=== PATIENT | female | born 1990 | race Caucasian/White ===

== ENCOUNTER 2017-02-25 23:31 | Emergency (ER) | payer OTHER ==
[~2017-02-25] VITALS: Ht 160 cm; Wt 62.0 kg
[~2017-02-25 23:31] MED LIST: FERR27TA PR; FOLI0.4T2 PO; PREN1TAB49 PO
[2017-02-25 23:37] VITALS: Ht 160 cm; Wt 62.0 kg
[2017-02-25] MEDS ORDERED: LIDOCAINE/MYLANTA 40 ML BTL PO STA (23:48)
[2017-02-25] MEDS ORDERED: SOD CHLORIDE 0.9% 500 ML IV STA (23:48)
[2017-02-26 00:25] LABS: ADD SCAN DIFF NO
[2017-02-26 00:30] LABS: BASOPHILS % 0.2 % (0.0-2.0); MEAN CORPUSCULAR VOLUME 90.3 fl (82.0-101.0); RED CELL DISTRIBUTION WIDTH 13.5 % (11.5-14.5)
[2017-02-26 00:35] LABS: EOSINOPHILS # 0.1 10^3/ul (0.0-0.5); HEMATOCRIT 32.6 % (37.0-47.0); HEMOGLOBIN 10.8 g/dl (12.0-16.0); LYMPHOCYTES # 1.8 10^3/ul (0.8-2.9); LYMPHOCYTES % 21.5 % (15.0-51.0); MEAN CORPUSCULAR HEMOGLOBIN 29.9 pg (29.0-33.0); MEAN CORPUSCULAR HGB CONC 33.1 g/dl (32.0-37.0); MEAN PLATELET VOLUME 11.9 fl (7.4-10.4); MONOCYTE # 0.6 10^3/ul (0.3-0.9); MONOCYTES % 6.8 % (0.0-11.0); NEUTROPHIL # 5.8 10^3/ul (1.6-7.5); NEUTROPHILS % 69.9 % (39.0-77.0); PLATELET COUNT 182 10^3/UL (140-415); RED BLOOD COUNT 3.61 10^6/ul (4.20-5.40); WHITE BLOOD COUNT 8.3 10^3/ul (4.8-10.8)
[2017-02-26 00:42] LABS: ADD UMIC YES; UR ASCORBIC ACID NEGATIVE (NEGATIVE); UR BACTERIA MODERATE /HPF (NONE SEEN); UR BILIRUBIN (Dip) NEGATIVE (NEGATIVE); UR BLOOD (Dip) NEGATIVE (NEGATIVE); UR CLARITY CLOUDY (CLEAR); UR COLOR YELLOW (YELLOW); UR GLUCOSE (Dip) NEGATIVE (NEGATIVE); UR KETONES (Dip) NEGATIVE (NEGATIVE); UR LEUKOCYTE ESTERASE (Dip) 3+ Leu/ul (NEGATIVE); UR NITRITE (Dip) NEGATIVE (NEGATIVE); UR RBC 2 /HPF (0-5); UR SPECIFIC GRAVITY (Dip) 1.016 (1.003-1.030); UR SQUAMOUS EPITHELIAL CELL MANY /HPF (FEW); UR TOTAL PROTEIN (Dip) NEGATIVE (NEGATIVE); UR UROBILINOGEN (Dip) NEGATIVE (NEGATIVE)
[2017-02-26 00:44] LABS: INR 0.93; PROTIME 12.5 Sec (12.2-14.2)
[2017-02-26 00:45] LABS: PARTIAL THROMBOPLASTIN TIME 27.3 Sec (25.0-35.0)
[2017-02-26 00:49] LABS: ANION GAP 8 (8-16); BLOOD UREA NITROGEN 10 mg/dl (7-20); CALCIUM 9.7 mg/dl (8.4-10.2); CARBON DIOXIDE 24 mmol/L (21-31); CHLORIDE 101 mmol/L (97-110); CREATININE 0.64 mg/dl (0.44-1.00); GLUCOSE 101 mg/dl (70-220); POTASSIUM 3.5 mmol/L (3.5-5.1); SODIUM 129 mmol/L (135-144)
[2017-02-26 01:04] LABS: TROPONIN-I < 0.012 ng/ml (0.00-0.12)
[2017-02-26] MEDS ORDERED: CEFEPIME 1GM/50 ML (PMX) 50 ML IVPB ONE (02:30)
[2017-02-26] MEDS ORDERED: CEPH500C PO (02:32)
[2017-02-26] MEDS ORDERED: RANI150T9 PO (02:32)
--- NOTE | 2017-02-26 02:41 | ERD ---
ER Documentation Chief Complaint Date/Time DATE: 02/26/17 TIME: 02:34 Chief Complaint c/o SB and CP with excertion. (+) 38 wks . HPI 26-year-old female presents with chest pain since earlier this morning coming by some shortness of breath. There is certain trunk movements which make the chest pain worse. She denies any fever or chills. She is currently 38 weeks and has had no complications so far. ROS All systems reviewed and are negative except as per history of present illness. Medications Home Meds Active Scripts Cephalexin* (Cephalexin*) 500 Mg Capsule, 500 MG PO Q8, #9 CAP Prov:SHARON GUARDADO DO 02/26/17 Ranitidine Hcl* (Zantac*) 150 Mg Tablet, 150 MG PO BID, #60 TAB Prov:SHARON GUARDADO DO 02/26/17 Reported Medications Vits W-Ca,Fe,Fa(<1MG) () 1 Tab Tablet, 1 PO 06/08/11 Discontinued Reported Medications Folic Acid* (Folic Acid*) 0.4 Mg Tablet, 0.4 MG PO 06/08/11 Ferrous Sulfate (Iron) 1 Tab Tablet, 1 AK 06/08/11 Allergies Allergies: Coded Allergies: No Known Drug Allergies (Unverified Allergy, Unknown, 02/26/17) PMhx/Soc Medical and Surgical Hx: pt denies Medical Hx, pt denies Surgical Hx Hx Alcohol Use: No Hx Substance Use: No Hx Tobacco Use: No Smoking Status: Never smoker Physical Exam Vitals Vital Signs Date Time Temp Pulse Resp B/P Pulse Ox O2 Delivery O2 Flow Rate FiO2 02/25/17 23:37 98.7 74 18 103/62 98 Physical Exam Const: [] No distress Head: Atraumatic Eyes: Normal Conjunctiva ENT: Normal External Ears, Nose and Mouth. Neck: Full range of motion..~ No meningismus. Resp: Clear to auscultation bilaterally Cardio: Regular rate and rhythm, no murmurs Abd: Gravid, non tender, no deformities Skin: No petechiae or rashes Back: No midline or flank tenderness Ext: No cyanosis, or edema Neur: Awake and alert and oriented 3, no focal deficits Psych: Normal Mood and Affect Result Diagram: 02/25/17 2351 02/25/17 2351 Results 24 hrs Laboratory Tests Test 02/25/17 23:51 02/26/17 00:19 White Blood Count 8.310^3/ul Red Blood Count 3.6110^6/ul Hemoglobin 10.8g/dl Hematocrit 32.6% Mean Corpuscular Volume 90.3fl Mean Corpuscular Hemoglobin 29.9pg Mean Corpuscular Hemoglobin Concent 33.1g/dl Red Cell Distribution Width 13.5% Platelet Count 56178^3/UL Mean Platelet Volume 11.9fl Neutrophils % 69.9% Lymphocytes % 21.5% Monocytes % 6.8% Eosinophils % 1.0% Basophils % 0.2% Nucleated Red Blood Cells % 0.0/100WBC Neutrophils # 5.810^3/ul Lymphocytes # 1.810^3/ul Monocytes # 0.610^3/ul Eosinophils # 0.110^3/ul Basophils # 0.010^3/ul Nucleated Red Blood Cells # 0.010^3/ul Prothrombin Time 12.5Sec Prothrombin Time Ratio 1.0 INR International Normalized Ratio 0.93 Activated Partial Thromboplast Time 27.3Sec Sodium Level 129mmol/L Potassium Level 3.5mmol/L Chloride Level 101mmol/L Carbon Dioxide Level 24mmol/L Anion Gap 8 Blood Urea Nitrogen 10mg/dl Creatinine 0.64mg/dl Glucose Level 101mg/dl Calcium Level 9.7mg/dl Troponin I < 0.012ng/ml B-Type Natriuretic Peptide 77PG/ML Urine Color YELLOW Urine Clarity CLOUDY Urine pH 7.0 Urine Specific [place] 1.016 Urine Ketones NEGATIVEmg/dL Urine Nitrite NEGATIVEmg/dL Urine Bilirubin NEGATIVEmg/dL Urine Urobilinogen NEGATIVEmg/dL Urine Leukocyte Esterase 3+Lori/ul Urine Microscopic RBC 2/HPF Urine Microscopic WBC 54/HPF Urine Squamous Epithelial Cells MANY/HPF Urine Bacteria MODERATE/HPF Urine Hemoglobin NEGATIVEmg/dL Urine Glucose NEGATIVEmg/dL Urine Total Protein NEGATIVEmg/dl Current Medications Medications (Trade) Dose Ordered Sig/Murali Route PRN Reason Start Time Stop Time Status Last Admin Dose Admin Sodium Chloride (NS) 500 ml @ 500 mls/hr Q1H STAT IV 02/25/17 23:48 02/26/17 00:47 DC 02/26/17 00:22 Miscellaneous Medication 40 ml 40 ml ONCE STAT PO 02/25/17 23:48 02/25/17 23:51 DC 02/26/17 00:23 Cefepime HCl (Maxipime 1gm/50 ml (Pmx)) 50 ml @ 100 mls/hr ONCE ONCE IVPB 02/26/17 02:30 02/26/17 02:59 02/26/17 02:28 Procedures/MDM Chest pain with shortness of breath and female that resolved almost simultaneously with GI cocktail. She has had very stable vital signs and his symptoms are resolved I have very low suspicion for pulmonary embolism or acute coronary syndrome. Does have a urinary tract infection. Also has some anemia and hyponatremia. She currently feels very well. Going to discharge her with Keflex for her urinary tract infection. She was given IV normal saline per I did give 1 g of Rocephin in the emergency room in order to prevent any complications of her secondary to a UTI. She is stable currently I am discharging her to go up to labor and delivery for the specialist to check out the health of her baby. EKG interpretation: Normal sinus rhythm rate of 76, normal axis, no ST or T- wave changes concerning for acute ischemia, normal intervals. Normal EKG with normal respiratory variation. gambling monitor interpretation: Normal sinus rhythm without arrhythmia Departure Diagnosis: Primary Impression: UTI (urinary tract infection) Additional Impressions: GERD (gastroesophageal reflux disease) Chest pain Hyponatremia Condition: Stable Patient Instructions: Understanding Urinary Tract Infections (UTIs), Chest Pain , Uncertain Cause, Gerd (Adult) Referrals: COMMUNITY CLINICS YOU HAVE RECEIVED A MEDICAL SCREENING EXAM AND THE RESULTS INDICATE THAT YOU DO NOT HAVE A CONDITION THAT REQUIRES URGENT TREATMENT IN THE EMERGENCY DEPARTMENT. FURTHER EVALUATION AND TREATMENT OF YOUR CONDITION CAN WAIT UNTIL YOU ARE SEEN IN YOUR DOCTORS OFFICE WITHIN THE NEXT 1-2 DAYS. IT IS YOUR RESPONSIBILITY TO MAKE AN APPOINTMENT FOR FOLOW-UP CARE. IF YOU HAVE A PRIMARY DOCTOR --you should call your primary doctor and schedule an appointment IF YOU DO NOT HAVE A PRIMARY DOCTOR YOU CAN CALL OUR PHYSICIAN REFERRAL HOTLINE AT IF YOU CAN NOT AFFORD TO SEE A PHYSICIAN YOU CAN CHOSE FROM THE FOLLOWING PENDING SALE TO [facility] [address] [facility]. [facility] [address] [facility]. [facility] [address] [facility]. [facility] [address] [facility]. [facility] [address] [facility]. [facility]. [address] Additional Instructions: Llame al doctor MAANA y andrew marla ALEJANDRINA PARA DENTRO DE 1-2 WOODSON.Dgale a la secretaria que nosotros le instruimos hacer esta alejandrina.Avise o llame si woodard condicin se empeora antes de la alejandrina. Regresa aqui si peor o no mejor. SHARON GUARDADO DO Feb 26, 2017 02:41
[2017-02-26 02:53] VITALS: BP 98/63; PULSE 71; RESP 15
== END 2017-02-26 03:00 | disposition home or self-care (01) ==
LOC: E/R 23:31
DX: O23.43 Unspecified infection of urinary tract in pregnancy, third trimester (principal); K21.9 Gastro-esophageal reflux disease without esophagitis; R07.9 Chest pain, unspecified; E87.1 Hypo-osmolality and hyponatremia; R06.02 Shortness of breath; O99.613 Diseases of the digestive system complicating pregnancy, third trimester; O99.283 Endocrine, nutritional and metabolic diseases complicating pregnancy, third trimester; Z3A.38 38 weeks gestation of pregnancy
CPT/HCPCS: 36415; 80048; 81001; 83880; 84484; 85025; 85610; 85730; 87086; 93005; 96374; J0692; J7040; Z7502; Z7610

== ENCOUNTER 2017-02-26 03:10 | Outpatient (CLI) | payer OTHER ==
[~2017-02-26] VITALS: Ht 154.9 cm; Wt 58.8 kg
[~2017-02-26 03:10] MED LIST changes: +CEPH500C PO; +RANI150T9 PO
[2017-02-26 03:31] VITALS: BP 101/59; PULSE 59; RESP 18
--- NOTE | 2017-02-26 05:07 | RADRPT ---
PROCEDURE: OB ultrasound for biophysical profile CLINICAL INDICATION: Contractions TECHNIQUE: Multiple sonographic images of the pelvis were obtained. Transabdominal views of the g ravid uterus are available for review. The images were reviewed on a PACS workstation. COMPARISON: None FINDINGS: breathing movement = 2/2 tone = 2/2 motion = 2/2 MAGGI = 2/2 MAGGI = 11.5 cm Single live intrauterine with cardiac activity of 131 bpm. position is cephal ic. The placenta is posterior. IMPRESSION: 1. Single live intrauterine gestation. 2. Biophysical profile = 8. 3. MAGGI = 11.5 cm. RPTAT: HH .Linda Long MD, MD Date Time Electronically viewed and signed by .Linda Long MD, on 02/26/2017 05:06 .G/
--- NOTE | 2017-02-26 05:28 | TRIAGE ---
OB Triage Datetime Report Generated by CPN: 02/26/2017 05:28 Datetime: 02/26/2017 05:16 Stage of : OB Triage Monitor Mode: External Quality: Mild Pattern: Normal: <= 5 Contractions in 10 Minutes Resting Tone [place]: Relaxed Heart Rate FHR Baseline Rate: 115 Monitor Mode: External US FHR Baseline Changes: No Baseline Change Variability: Moderate 6-25 bpm Accelerations: 15X15 Decelerations: None Category: Category I Datetime: 02/26/2017 04:27 Amniotic Fluid Odor: None Pool: Negative Nitrazine: Negative Datetime: 02/26/2017 04:20 Stage of : OB Triage Monitor Mode: External Quality: Mild Pattern: Normal: <= 5 Contractions in 10 Minutes Resting Tone [place]: Relaxed Heart Rate FHR Baseline Rate: 115 Monitor Mode: External US Variability: Moderate 6-25 bpm Accelerations: 15X15 Decelerations: None Category: Category I Datetime: 02/26/2017 04:06 Heart Rate FHR Baseline Rate: 120 Monitor Mode: External US Datetime: 02/26/2017 03:57 Stage of : OB Triage Datetime: 02/26/2017 03:55 Stage of : OB Triage Labor Evaluation Frequency: 2-5 Monitor Mode: External Duration (sec)2399: 40-60 Quality: Mild Pattern: Normal: <= 5 Contractions in 10 Minutes Resting Tone [place]: Relaxed Heart Rate FHR Baseline Rate: 120 Monitor Mode: External US FHR Baseline Changes: No Baseline Change Variability: Moderate 6-25 bpm Accelerations: 15X15 Decelerations: None Category: Category I Vaginal Exam Dilatation (cms): 0.0 Effacement (%): 20 Station: -3 Exam By: Munira Smyth Membrane Status: Intact Vaginal Bleeding: None Cervix, Consistency: Moderate Cervix, Position: Posterior Presentation 'A': Unable to Assess Datetime: 02/26/2017 03:39 Membrane Status: Intact Datetime: 02/26/2017 03:21 Time of Arrival: 02/26/2017 02:55 EGA: 37.4 Arrived By: Wheelchair Arrived From: Emergency Dept Chief Complaint: sent from ER for NST after being cleared for SOB and chest pain Movement: Present Contractions: Occasional Rupture of Membranes: Denies Vaginal Bleeding: None Vaginal Discharge: Denies Recent Sexual Intercouse: Denies Abdominal Trauma: Not Applicable Patient Complaints: Other Time Provider Notified: 02/26/2017 03:57 Provider Notified: Dr Muñoz Initial Plan: EFM Datetime: 02/26/2017 03:14 Stage of : OB Triage Maternal Assessment Level of Consciousness: Fully Conscious Headache: Denies Blurred Vision: No Respiratory Effort: Unlabored Nausea/Vomiting: Denies RUQ Epigastric Pain: Denies Facial Edema: None Labor Evaluation Frequency: placed Monitor Mode: External Resting Tone [place]: Relaxed Heart Rate FHR Baseline Rate: 145 Monitor Mode: External US Pain Assessment Pain Scale: 0 Pain Presence: None/Denies Pain Type: N/A
--- NOTE | 2017-02-26 07:17 | PN ---
Triage Information Date/Time February 26, 2017 Weeks of Gestation 37 weeks and 4 days : 3 Para: 2 Diabetes: none Hypertention: none Additional information 26-year-old with IUP at 37 weeks and 4 days presented, with complaint of irregular uterine contractions as well as leaking of fluid for the last month on and off. She also was complaining of shortness of breath and chest pain and had been currently evaluated in the ER. Reports that her chest pain resolved. At this point denies any shortness of breath or chest pain. Denies any decreased movement or vaginal bleeding. Objective Vital Signs Date Time Temp Pulse Resp B/P Pulse Ox O2 Delivery O2 Flow Rate FiO2 02/26/17 03:31 97.8 59 18 101/59 Room Air Heart Rate: 130's Contractions: >10 Minutes Apart Exam General appearance: Alert and oriented 4 patient does not appear to be in any acute distress. Abdomen: Soft, gravid, fundal height consistent with gestational age No rebound tenderness no guarding or rigidity Sterile speculum examination: Negative pooling negative R OM, Adequate MAGGI and ultrasound Cervix closed and long Results/Medications Results 24 hrs Laboratory Tests Test 02/26/17 04:25 Membranes Rupture NEGATIVE Imaging Results PROCEDURE: OB ultrasound for biophysical profile CLINICAL INDICATION: Contractions TECHNIQUE: Multiple sonographic images of the pelvis were obtained. Transabdominal views of the gravid uterus are available for review. The images were reviewed on a PACS workstation. COMPARISON: None FINDINGS: breathing movement = 2/2 tone = 2/2 motion = 2/2 MAGGI = 2/2 MAGGI = 11.5 cm Single live intrauterine with cardiac activity of 131 bpm. position is cephalic. The placenta is posterior. IMPRESSION: 1. Single live intrauterine gestation. 2. Biophysical profile = 8/8. 3. MAGGI = 11.5 cm. RPTAT: HH Assessment/Plan IUP at 37 weeks and 4 days No evidence of labor No evidence of PPROM testing reassuring DC home Strict labor precaution and kick count and follow-up with her OB office in 1-2 days discussed with patient RED LICONA MD Feb 26, 2017 07:17
== END 2017-02-26 05:23 | disposition home or self-care (01) ==
LOC: OBT 03:10 → L-D 03:10 → OBT 05:23
PROVIDERS: ATTEND Obstetrics & Gynecology
DX: O62.9 Abnormality of forces of labor, unspecified (principal); Z3A.37 37 weeks gestation of pregnancy
CPT/HCPCS: 76818; 84112; Z7500; G0463

== ENCOUNTER 2017-03-14 21:55 | Inpatient (IN) | payer OTHER ==
[~2017-03-14] VITALS: Ht 154.9 cm; Wt 59.0 kg
[~2017-03-14 21:55] MED LIST changes: -FERR27TA PR; -FOLI0.4T2 PO
[2017-03-14 22:05] VITALS: Ht 154.9 cm; Wt 59.0 kg
[2017-03-14] MEDS ORDERED: IRON1TAB78 PO (22:09)
[2017-03-14 22:12] VITALS: BP 111/56; PULSE 72; RESP 18
--- NOTE | 2017-03-14 22:47 | TRIAGE ---
OB Triage Datetime Report Generated by CPN: 03/14/2017 22:46 Datetime: 03/14/2017 22:40 Stage of : OB Triage Temperature Route: Oral Labor Evaluation Frequency: IRREG Monitor Mode: External Duration (sec)2399: 60-100 Quality: Mild Pattern: Normal: <= 5 Contractions in 10 Minutes Resting Tone [place]: Relaxed Heart Rate FHR Baseline Rate: 135 Monitor Mode: External US Variability: Moderate 6-25 bpm Accelerations: 15X15 Decelerations: None Category: Category I Pain Assessment Pain Scale: 5 Pain Presence: Intermittent Pain Type: Cramping Pain Location: Abdomen Pain Goal: 3 Pain Relief Measures: Comfort Measures Datetime: 03/14/2017 22:09 Vaginal Exam Dilatation (cms): 1.0 Effacement (%): 0 Station: -3 Exam By: SHARON Vaginal Bleeding: None Cervix, Position: Midposition Datetime: 03/14/2017 22:08 Assessment Type: Triage Maternal Assessment Level of Consciousness: Fully Conscious DTR's/Clonus: DTRs 2+; No Clonus Headache: Denies Blurred Vision: No Respiratory Effort: Unlabored; Regular Rhythm; Equal Expansion Breath Sounds, Left: Clear and Equal Breath Sounds, Right: Clear and Equal Nausea/Vomiting: Denies RUQ Epigastric Pain: Denies Lower Extremities Edema: None Upper Extremities Edema: None Facial Edema: None Fall Risk Assessment History of Falling: (0) No Secondary Diagnosis: (0) No Ambulatory Aid: (0) Bedrest/Nurse Assist IV Therapy: (0) No Gait: (0) Normal/Bedrest/Immobile Mental Status: (0) Oriented to Own Ability Fall Score: 0 Fall Risk Score Definition: No Risk: No action required Datetime: 03/14/2017 22:06 Time of Arrival: 03/14/2017 21:48 EGA: 39.6 Arrived By: Wheelchair Arrived From: Home Chief Complaint: ABD PAIN FOR 2 HRS, CXS Q 10 MIN Movement: Present Contractions: Irregular Time Contractions Began: 03/14/2017 20:00 Rupture of Membranes: Denies Vaginal Discharge: Denies Time Provider Notified: 03/14/2017 22:28 Provider Notified: IMANI Initial Plan: EFM, VE, CALL MD FOR ORDERS Datetime: 02/26/2017 03:21 EGA: 37.4
[2017-03-14] MEDS ORDERED: LACTATED RINGER'S 1,000 ML IV PRN (23:00)
[2017-03-14] MEDS ORDERED: METHYLERGONOVINE 0.2 MG INJ IM PRN (23:00)
[2017-03-14] MEDS ORDERED: CARBOPROST 250 MCG INJ IM PRN (23:00)
[2017-03-14] MEDS ORDERED: MISOPROSTOL 200 MCG TAB PR PRN (23:00)
[2017-03-14] MEDS ORDERED: IBUPROFEN 600 MG TAB PO PRN (23:00)
[2017-03-14] MEDS ORDERED: BUTORPHANOL 2 MG INJ IV PRN (23:00)
[2017-03-14] MEDS ORDERED: LIDOCAINE 1% (MPF) 30 ML INJ INJ PRN (23:00)
[2017-03-14] MEDS ORDERED: OXYTOCIN 30 UNITS/LR 500 ML IV SCH ×2 (23:00)
[2017-03-14] MEDS ORDERED: OXYTOCIN 30 UNITS/LR 500 ML IV PRN (23:00)
[2017-03-14 23:21] LABS: BASOPHILS % 0.3 % (0.0-2.0); EOSINOPHILS # 0.1 10^3/ul (0.0-0.5); EOSINOPHILS % 1.3 % (0.0-7.0); HEMATOCRIT 30.3 % (37.0-47.0); HEMOGLOBIN 10.5 g/dl (12.0-16.0); LYMPHOCYTES # 1.5 10^3/ul (0.8-2.9); LYMPHOCYTES % 21.7 % (15.0-51.0); MEAN CORPUSCULAR HEMOGLOBIN 30.6 pg (29.0-33.0); MEAN CORPUSCULAR HGB CONC 34.7 g/dl (32.0-37.0); MEAN CORPUSCULAR VOLUME 88.3 fl (82.0-101.0); MEAN PLATELET VOLUME 11.8 fl (7.4-10.4); MONOCYTE # 0.6 10^3/ul (0.3-0.9); MONOCYTES % 9.1 % (0.0-11.0); NEUTROPHIL # 4.5 10^3/ul (1.6-7.5); NEUTROPHILS % 66.9 % (39.0-77.0); PLATELET COUNT 186 10^3/UL (140-415); RED BLOOD COUNT 3.43 10^6/ul (4.20-5.40); RED CELL DISTRIBUTION WIDTH 13.9 % (11.5-14.5); WHITE BLOOD COUNT 6.8 10^3/ul (4.8-10.8)
[2017-03-14] MEDS: LACTATED RINGER'S 1,000 ML IV SCH (23:21)
[2017-03-15 00:28] LABS: PROTIME 13.2 Sec (12.2-14.2)
[2017-03-15 00:29] LABS: PARTIAL THROMBOPLASTIN TIME 28.5 Sec (25.0-35.0)
[2017-03-15] MEDS: LACTATED RINGER'S 1,000 ML IV SCH ×3 (01:26→13:20)
[2017-03-15 02:57] LABS: ADD UMIC YES; UR ASCORBIC ACID NEGATIVE (NEGATIVE); UR BACTERIA FEW /HPF (NONE SEEN); UR BILIRUBIN (Dip) NEGATIVE (NEGATIVE); UR BLOOD (Dip) NEGATIVE (NEGATIVE); UR CLARITY CLOUDY (CLEAR); UR COLOR YELLOW (YELLOW); UR GLUCOSE (Dip) NEGATIVE (NEGATIVE); UR KETONES (Dip) NEGATIVE (NEGATIVE); UR LEUKOCYTE ESTERASE (Dip) 3+ Leu/ul (NEGATIVE); UR NITRITE (Dip) NEGATIVE (NEGATIVE); UR RBC 3 /HPF (0-5); UR SPECIFIC GRAVITY (Dip) 1.006 (1.003-1.030); UR SQUAMOUS EPITHELIAL CELL FEW /HPF (FEW); UR TOTAL PROTEIN (Dip) NEGATIVE (NEGATIVE); UR UROBILINOGEN (Dip) NEGATIVE (NEGATIVE)
[2017-03-15] MEDS ORDERED: DINOPROSTONE 10 MG VAG SUPP VAG ONE (11:30)
[2017-03-15] MEDS ORDERED: FENTAnyl 2MCG/ML-ROPIV 0.2% 100 ML ONE (13:45)
[2017-03-15] MEDS ORDERED: DIPHENHYDRAMINE 50 MG INJ IV PRN (16:00)
[2017-03-15] MEDS ORDERED: NALOXONE (0.4 MG/ML) INJ IV PRN (16:00)
[2017-03-15] MEDS ORDERED: ONDANSETRON 4 MG INJ IV PRN (16:00)
[2017-03-15] MEDS ORDERED: FENTAnyl 2MCG/ML-ROPIV 0.2% 100 ML BAG EPI SCH (16:00)
--- NOTE | 2017-03-15 19:36 | HP ---
Date/Time of Note Date/Time of Note DATE: 03/15/17 TIME: 19:35 OB - History Hx of Present Free Text/Dictation term preg. in active labor Care: Good Care Ultrasounds: Normal mid trimester US Obstetrical Complications: None Medical Complications: None Past Family/Social History * Past Medical, Surgical, Family and Obstetric Histories reviewed from chart. OB Admission Exam Vital Signs Vital Signs Vital Signs Date Time Temp Pulse Resp B/P Pulse Ox O2 Delivery O2 Flow Rate FiO2 03/14/17 22:12 97.7 72 18 111/56 Room Air Physical Exam HEENT: WNL Heart: Rhythm Normal Lungs: Clear, Equal Abdomen: WNL Extremities: Normal Reflexes: Normal Cervical Dilatation: 10cm Station: +3 Membranes: Ruptured Heart Rate: 120's Last 72 hours Lab Results CBC & BMP 03/14/17 23:00 OB Assessment/Plan Plan: Expectant Management DAYRON DIALLO MD Mar 15, 2017 19:36
--- NOTE | 2017-03-15 19:37 | LDN ---
Date/Time of Note Date/Time of Note DATE: 03/15/17 TIME: 19:36 Delivery Summary NSD W/O COMPLICATIONS Placenta Delivered: Spontaneously Meconium: none Anesthesia type: Epidural Estimated blood loss: 350 Sponge & Needle done & correct: Yes All needle counts correct: Yes Problems: DAYRON DIALLO MD Mar 15, 2017 19:37
--- NOTE | 2017-03-15 19:40 | DS ---
Date/Time of Note Date/Time of Note DATE: 03/15/17 TIME: 19:39 Discharge Summary Admission/Discharge Info Admit Date/Time Mar 14, 2017 at 22:28 Discharge Date/Time Discharge Diagnosis TERM PREG Patient Condition: Good Hospital Course UNREMARKABLE Home Meds Active Scripts Cephalexin* (Cephalexin*) 500 Mg Capsule, 500 MG PO Q8, #9 CAP Prov:SHARON GUARDADO DO 02/26/17 Ranitidine Hcl* (Zantac*) 150 Mg Tablet, 150 MG PO BID, #60 TAB Prov:SHARON GUARDADO DO 02/26/17 Reported Medications Iron,Carbonyl/Vit C/Vit B12/Fa (IRON 100 PLUS TABLET) 1 Each Tablet, 1 EACH PO DAILY, TAB 03/14/17 Vits W-Ca,Fe,Fa(<1MG) () 1 Tab Tablet, 1 PO 06/08/11 Primary Care Provider Not On Staff Doctor Pending Labs Laboratory Tests Test 03/14/17 22:00 03/14/17 23:00 Urine Color YELLOW (YELLOW) Urine Clarity CLOUDY (CLEAR) Urine pH 6.0 (5.0-9.0) Urine Specific [place] 1.006 (1.003-1.030) Urine Ketones NEGATIVEmg/dL (NEGATIVE) Urine Nitrite NEGATIVEmg/dL (NEGATIVE) Urine Bilirubin NEGATIVEmg/dL (NEGATIVE) Urine Urobilinogen NEGATIVEmg/dL (NEGATIVE) Urine Leukocyte Esterase 3+Lori/ul (NEGATIVE) Urine Microscopic RBC 3/HPF (0-5) Urine Microscopic WBC 5/HPF (0-5) Urine Squamous Epithelial Cells FEW/HPF (FEW) Urine Bacteria FEW/HPF (NONE SEEN) Urine Hemoglobin NEGATIVEmg/dL (NEGATIVE) Urine Glucose NEGATIVEmg/dL (NEGATIVE) Urine Total Protein NEGATIVEmg/dl (NEGATIVE) White Blood Count 6.810^3/ul (4.8-10.8) Red Blood Count 3.4310^6/ul (4.20-5.40) Hemoglobin 10.5g/dl (12.0-16.0) Hematocrit 30.3% (37.0-47.0) Mean Corpuscular Volume 88.3fl (82.0-101.0) Mean Corpuscular Hemoglobin 30.6pg (29.0-33.0) Mean Corpuscular Hemoglobin Concent 34.7g/dl (32.0-37.0) Red Cell Distribution Width 13.9% (11.5-14.5) Platelet Count 76824^3/UL (140-415) Mean Platelet Volume 11.8fl (7.4-10.4) Neutrophils % 66.9% (39.0-77.0) Lymphocytes % 21.7% (15.0-51.0) Monocytes % 9.1% (0.0-11.0) Eosinophils % 1.3% (0.0-7.0) Basophils % 0.3% (0.0-2.0) Nucleated Red Blood Cells % 0.0/100WBC (0.0-0.0) Neutrophils # 4.510^3/ul (1.6-7.5) Lymphocytes # 1.510^3/ul (0.8-2.9) Monocytes # 0.610^3/ul (0.3-0.9) Eosinophils # 0.110^3/ul (0.0-0.5) Basophils # 0.010^3/ul (0.0-0.1) Nucleated Red Blood Cells # 0.010^3/ul (0.0-0.0) Prothrombin Time 13.2Sec (12.2-14.2) Prothrombin Time Ratio 1.0 INR International Normalized Ratio 1.00 Activated Partial Thromboplast Time 28.5Sec (25.0-35.0) Hepatitis B Surface Antigen NEGATIVE (NEGATIVE) DAYRON DIALLO MD Mar 15, 2017 19:40
[2017-03-15 21:25] VITALS: BP 112/63; PULSE 63; RESP 18
[2017-03-15] MEDS: LACTATED RINGER'S 1,000 ML IV* SCH (22:03)
[2017-03-15] MEDS ORDERED: MISOPROSTOL 200 MCG TAB PR PRN (22:30)
[2017-03-15] MEDS ORDERED: METHYLERGONOVINE 0.2 MG INJ IM PRN (22:30)
[2017-03-15] MEDS ORDERED: OXYTOCIN 30 UNITS/LR 500 ML IV PRN (22:30)
[2017-03-15] MEDS ORDERED: ACETAMINOPHEN 325 MG TAB PO PRN (22:30)
[2017-03-15] MEDS ORDERED: DIPHENHYDRAMINE 25 MG CAP PO PRN (22:30)
[2017-03-15] MEDS ORDERED: SENNA/DOCUSATE NA (8.6MG/50MG) TAB PO PRN (22:30)
[2017-03-15] MEDS ORDERED: CARBOPROST 250 MCG INJ IM PRN (22:30)
[2017-03-15] MEDS ORDERED: LANOLIN 7 GM TUBE TOP PRN (22:30)
[2017-03-15] MEDS ORDERED: MAGNESIUM HYDROXIDE 30ML CUP PO PRN (22:30)
[2017-03-15] MEDS ORDERED: ZOLPIDEM 5 MG TAB PO PRN (22:30)
[2017-03-15] MEDS ORDERED: BENZOCAINE 20% 56 ML SPRAY TOP PRN (22:30)
[2017-03-15] MEDS ORDERED: WITCH HAZEL/GLYCERIN PAD PR PRN (22:30)
[2017-03-15] MEDS ORDERED: ACETAMINOPHEN/CODEINE #3 TAB PO PRN (22:30)
[2017-03-15] MEDS: IBUPROFEN 800 MG TAB PO SCH (23:55)
[2017-03-15] MEDS: OXYTOCIN 30 UNITS/LR 500 ML IV SCH (23:56)
[2017-03-16] MEDS: OXYTOCIN 30 UNITS/LR 500 ML IV SCH (02:03)
[2017-03-16 04:00] VITALS: BP 98/55; PULSE 56; RESP 18
[2017-03-16] MEDS: IBUPROFEN 800 MG TAB PO SCH ×4 (05:26→23:43)
[2017-03-16] MEDS: LACTATED RINGER'S 1,000 ML IV* SCH ×2 (05:27→19:21)
[2017-03-16 08:00] VITALS: BP 90/49; PULSE 57; RESP 18
[2017-03-16 08:38] LABS: BASOPHILS % 0.2 % (0.0-2.0); EOSINOPHILS % 0.4 % (0.0-7.0); HEMATOCRIT 27.4 % (37.0-47.0); HEMOGLOBIN 9.1 g/dl (12.0-16.0); LYMPHOCYTES # 1.5 10^3/ul (0.8-2.9); LYMPHOCYTES % 16.1 % (15.0-51.0); MEAN CORPUSCULAR HEMOGLOBIN 29.4 pg (29.0-33.0); MEAN CORPUSCULAR HGB CONC 33.2 g/dl (32.0-37.0); MEAN CORPUSCULAR VOLUME 88.4 fl (82.0-101.0); MONOCYTE # 0.5 10^3/ul (0.3-0.9); MONOCYTES % 5.3 % (0.0-11.0); NEUTROPHIL # 7.4 10^3/ul (1.6-7.5); NEUTROPHILS % 77.4 % (39.0-77.0); PLATELET COUNT 135 10^3/UL (140-415); RED CELL DISTRIBUTION WIDTH 14.2 % (11.5-14.5); WHITE BLOOD COUNT 9.5 10^3/ul (4.8-10.8)
--- NOTE | 2017-03-16 12:53 | QN ---
Documentation Comment ppd1 pt doing well vss exam wnl a/p ppd1 pt doing well continue care NETO AMAYA MD Mar 16, 2017 12:53
[2017-03-16 16:00] VITALS: BP 97/46; PULSE 70; RESP 18
[2017-03-16 20:00] VITALS: BP 100/55; PULSE 59; RESP 18
[2017-03-17] VITALS: BP 97/51; PULSE 50; RESP 18
[2017-03-17 04:00] VITALS: BP 102/54; PULSE 53; RESP 17
[2017-03-17] MEDS: IBUPROFEN 800 MG TAB PO SCH ×2 (05:50→12:06)
[2017-03-17] MEDS: LACTATED RINGER'S 1,000 ML IV* SCH (06:03)
[2017-03-17 08:05] VITALS: BP 101/53; PULSE 56; RESP 17
[2017-03-17] MEDS ORDERED: DIPHTH/TET/ACEL PERTUSS (ADULT) 0.5 ML VIAL IM* ONE (09:00)
[2017-03-17] MEDS ORDERED: MEASLES,MUMPS,RUBELLA VACCINE INJ SC* ONE (09:00)
[2017-03-17] MEDS ORDERED: VARICELLA VACCINE LIVE/PF 1,350 UNIT/0.5 ML ML SC* ONE (09:00)
== END 2017-03-17 15:50 | disposition home or self-care (01) | DRG 775 ==
LOC: L-D 21:55 → OBT 21:55 → L-D 22:28 → PP1 03-15 21:06
PROVIDERS: ADMIT Obstetrics & Gynecology; ATTEND Obstetrics & Gynecology
PROC: 4A1HX4Z Monitoring of Products of Conception, Cardiac Electrical Activity, External Approach (ICD-10-PCS; 2017-03-14)
PROC: 10E0XZZ Delivery of Products of Conception, External Approach (ICD-10-PCS; principal; 2017-03-15)
DX: O80 Encounter for full-term uncomplicated delivery (principal); Z37.0 Single live birth; Z3A.40 40 weeks gestation of pregnancy
CPT/HCPCS: 62319; 81001; 85025; 85610; 85730; 86592; 86900; 86901; 87340; 90715; 90716; G0463; J2590; J3010; J7120